=== PATIENT | male | born 1950 | race Hispanic/Latino ===

== ENCOUNTER 2020-05-28 18:18 | Emergency (ER) | payer OTHER ==
[~2020-05-28 18:18] MED LIST: Iopamidol 370 76% 125 ML VIAL FS ONE; Sodium Chloride 0.9% 100 ML BAG ONE
[2020-05-28 18:53] LABS: #Basophils 0.1 thou/uL (0.0-0.2); #Eosinphils 0.3 thou/uL (0.0-0.7); #Lymphocytes 2.8 thou/uL (1.20-3.40); #Monocytes 0.6 thou/uL (0.11-0.59); #Neutrophils 6.3 thou/uL (1.40-6.50); %Basophils 1.2 % (0.0-1.0); %Lymphocytes 27.7 % (21.0-51.0); %Monocytes 5.5 % (0.0-10.0); %Neutrophils 62.6 % (42.0-75.0); Hemoglobin 15.9 g/dL (14.0-18.0); Mean Corpuscular HGB CONC 32.7 g/dL (32.0-36.0); Mean Corpuscular Hemoglobin 28.9 pg (27.0-31.0); Mean Corpuscular Volume 88.4 fL (78.0-98.0); Platelet Count 254 thou/uL (130-400); RBC Distribution Width 12.5 % (11.5-14.5); Red Blood Cell (RBC) Count 5.51 mill/uL (4.70-6.10)
[2020-05-28 18:59] LABS: INR-International Normal Ratio 1.1; Prothrombin Time 14.1 sec (12.0-14.7)
[2020-05-28 19:00] LABS: PTT 36.5 sec (22.9-36.1)
[2020-05-28 19:01] LABS: D-Dimer Test 1.99 *mcg/mL (0.27-0.43)
[2020-05-28] MEDS ORDERED: Aspirin 325 MG TAB ONE (19:02)
[2020-05-28 19:07] LABS: ALT (SGPT) 23 U/L (8-55); AST (SGOT) 18 U/L (5-34); Albumin 4.3 g/dL (3.4-4.8); Alkaline Phosphatase 125 U/L (40-110); Anion Gap 19 mmol/L (10-20); BUN (Urea Nitrogen) 24 mg/dL (8.4-25.7); Bilirubin, Total 0.6 mg/dL (0.2-1.2); CK (CPK) 134 U/L (30-200); Calc. Creatinine Clearance 0 mL/min (70-130); Calcium 9.7 mg/dL (7.8-10.44); Carbon Dioxide 24 mmol/L (23-31); Chloride 102 mmol/L (98-107); Globulin 4.5 g/dL (2.4-3.5); Glucose 315 mg/dL (83-110); Protein, Total 8.8 g/dL (5.8-8.1); Sodium 141 mmol/L (136-145)
[2020-05-28 19:09] LABS: CKMB 3.7 ng/mL (0-6.6)
--- NOTE | 2020-05-28 19:28 | RAD ---
RADIOGRAPH CHEST 1 VIEW: Date: 05/28/20 Time: 7:05 p.m. HISTORY: 70-year-old male with chest pain. COMPARISON: None available. FINDINGS: Sternotomy wires. Cardiac size at upper limits of normal. Diffusely prominent interstitial markings. No consolidation or pneumothorax. No grossly effacement of lateral costophrenic angles. IMPRESSION: 1. Previous open heart surgery. 2. Nonspecific prominent interstitial markings and borderline cardiomegaly. 3. No consolidation. JN [] POS: JIN
[2020-05-28] MEDS ORDERED: Morphine 4 MG/ML VIAL ONE (20:31)
[2020-05-28] MEDS ORDERED: Ondansetron PF 4 MG/2 ML Vial ONE (20:32)
--- NOTE | 2020-05-28 20:43 | CT ---
CT ARTERIOGRAM CHEST WITH IV CONTRAST AND 3D IMAGING CT ARTERIOGRAM ABDOMEN WITH IV CONTRAST AND 3D IMAGING 05/28/20 HISTORY: Dyspnea. Chest and abdomen pain. FINDINGS: There is good contrast opacification of the pulmonary arteries with bovine origin of the great vessel s at the aortic arch. Postoperative changes of the mediastinum. Calcification of the coronary arterie s. The visceral arteries of the abdomen are patent. pelvis was not imaged. Old healed fracture of the left clavicle and ribs. Gallbladder is surgically absent. Extensive motion artifact is noted from breathing. Nonenlarged left mediastinal lymph node is evident. IMPRESSION: No evidence of pulmonary embolus or other acute abnormality. POS: BST
[2020-05-28] MEDS ORDERED: Enoxaparin Sodium 100 MG/ML SYRINGE ONE (21:05)
[2020-05-28] MEDS ORDERED: cefTRIAXone\\ROCEPHIN 2 GM VIAL ONE (21:05)
[2020-05-28] MEDS ORDERED: Sodium Chloride 0.9% 100 ML ONE (21:05)
[2020-05-28 22:33] LABS: Lactic Acid 1.4 mmol/L (0.5-2.2)
[2020-05-28] MEDS ORDERED: Clopidogrel Bisulfate 75 MG TAB ONE (22:59)
[2020-05-28 23:40] LABS: CKMB 59.1 ng/mL (0-6.6)
== END 2020-05-28 22:35 | disposition short-term general hospital (02) ==
LOC: MADERS 18:18
DX: I21.4 Non-ST elevation (NSTEMI) myocardial infarction (principal); I48.91 Unspecified atrial fibrillation; E11.9 Type 2 diabetes mellitus without complications; E78.5 Hyperlipidemia, unspecified; I10 Essential (primary) hypertension; J44.9 Chronic obstructive pulmonary disease, unspecified; Z79.899 Other long term (current) drug therapy
CPT/HCPCS: 36415; 71045; 71275; 80053; 82550; 82553; 83605; 83880; 84484; 85025; 85379; 85610; 85730; 87040; 93005; 94760; 96365; 96372; 96375; J0696; J1650; J2270; J2405; J3490; Q9967

== ENCOUNTER 2020-06-28 05:54 | Emergency (ER) | payer OTHER, MEDICARE ==
[2020-06-28 06:11] LABS: #Basophils 0.1 thou/uL (0.0-0.2); #Eosinphils 0.3 thou/uL (0.0-0.7); #Lymphocytes 3.1 thou/uL (1.20-3.40); #Monocytes 0.6 thou/uL (0.11-0.59); #Neutrophils 5.8 thou/uL (1.40-6.50); %Basophils 1.1 % (0.0-1.0); %Eosinophils 3.2 % (0.0-10.0); %Lymphocytes 31.2 % (21.0-51.0); %Monocytes 6.1 % (0.0-10.0); %Neutrophils 58.3 % (42.0-75.0); Hemoglobin 14.8 g/dL (14.0-18.0); Mean Corpuscular HGB CONC 33.2 g/dL (32.0-36.0); Mean Corpuscular Hemoglobin 29.5 pg (27.0-31.0); Mean Corpuscular Volume 88.8 fL (78.0-98.0); Mean Platelet Volume 10.5 fL (7.4-10.4); Platelet Count 190 thou/uL (130-400); RBC Distribution Width 13.6 % (11.5-14.5); Red Blood Cell (RBC) Count 5.01 mill/uL (4.70-6.10); White Blood Cell (WBC) Count 9.9 thou/uL (4.8-10.8)
[2020-06-28 06:32] LABS: ALT (SGPT) 22 U/L (8-55); AST (SGOT) 21 U/L (5-34); Albumin 4.2 g/dL (3.4-4.8); Alkaline Phosphatase 100 U/L (40-110); Anion Gap 17 mmol/L (10-20); BUN (Urea Nitrogen) 17 mg/dL (8.4-25.7); Bilirubin, Total 0.8 mg/dL (0.2-1.2); CK (CPK) 157 U/L (30-200); Calc. Creatinine Clearance 0 mL/min (70-130); Calcium 9.3 mg/dL (7.8-10.44); Carbon Dioxide 21 mmol/L (23-31); Chloride 106 mmol/L (98-107); Globulin 4.4 g/dL (2.4-3.5); Glucose 249 mg/dL (83-110); Potassium 3.5 mmol/L (3.5-5.1); Protein, Total 8.6 g/dL (5.8-8.1); Sodium 140 mmol/L (136-145)
[2020-06-28 06:58] LABS: Critical Call Chem Troponin I 0
[2020-06-28] MEDS ORDERED: Aspirin Chewable 81 MG TAB ONE (07:07)
[2020-06-28] MEDS ORDERED: Furosemide 40 MG/4 ML VIAL ONE (07:07)
[2020-06-28] MEDS ORDERED: Nitroglycerin 2% Ointment 1 INCH/1 GM Packet ONE (07:07)
[2020-06-28 07:16] LABS: CKMB 5.4 ng/mL (0-6.6)
[2020-06-28] MEDS ORDERED: Azithromycin 500 MG VIAL ONE (08:07)
[2020-06-28] MEDS ORDERED: cefTRIAXone\\ROCEPHIN 1 GM VIAL ONE (08:07)
[2020-06-28] MEDS ORDERED: Enoxaparin Sodium 100 MG/ML SYRINGE ONE (08:07)
[2020-06-28] MEDS ORDERED: Sodium Chloride 0.9% 100 ML ONE (08:07)
[2020-06-28] MEDS ORDERED: Sodium Chloride 0.9% 250 ML 250 ML ONE (08:07)
[2020-06-28 08:36] LABS: SARS-CoV-2 NAA Rapid Test Not Detected (NotDetected)
--- NOTE | 2020-06-28 08:53 | RAD ---
RADIOGRAPH CHEST 1 VIEW: DATE: 06/28/2020 TIME: 6:23 AM HISTORY: 70-year-old male with dyspnea COMPARISON: 05/28/2020 FINDINGS: Sternal wires. No pneumothorax. No consolidation. New mild blunting of right lateral costophrenic ang le. Mild diffuse interstitial densities, slightly worse than before. Cardiac size upper limits of normal. IMPRESSION: Probable pulmonary interstitial edema and small right pleural effusion: Evidence for mild fluid volum e overload or mild congestive heart failure.
== END 2020-06-28 09:41 | disposition short-term general hospital (02) ==
LOC: MADERS 05:54
DX: I11.0 Hypertensive heart disease with heart failure (principal); I50.9 Heart failure, unspecified; Z20.822 Contact with and (suspected) exposure to COVID-19; I25.2 Old myocardial infarction; R79.89 Other specified abnormal findings of blood chemistry; E66.9 Obesity, unspecified; I48.91 Unspecified atrial fibrillation; E11.9 Type 2 diabetes mellitus without complications; E78.5 Hyperlipidemia, unspecified; J44.9 Chronic obstructive pulmonary disease, unspecified; Z79.4 Long term (current) use of insulin; Z79.899 Other long term (current) drug therapy; Z79.01 Long term (current) use of anticoagulants; Z79.82 Long term (current) use of aspirin
CPT/HCPCS: 0240U; 71045; 80053; 82550; 82553; 83605; 83690; 83880; 84484; 85025; 87040; 87086; 93005; 94760; 96365; 96367; 96372; 96375; J0456; J0696; J1650; J1940; J3490; J7050

== ENCOUNTER 2020-07-06 12:53 | Emergency (ER) | payer MEDICARE, OTHER ==
[2020-07-06 13:59] LABS: #Basophils 0.1 thou/uL (0.0-0.2); #Eosinphils 0.1 thou/uL (0.0-0.7); #Lymphocytes 2.1 thou/uL (1.20-3.40); #Monocytes 0.4 thou/uL (0.11-0.59); #Neutrophils 4.8 thou/uL (1.40-6.50); %Basophils 1.4 % (0.0-1.0); %Eosinophils 1.6 % (0.0-10.0); %Lymphocytes 27.5 % (21.0-51.0); %Monocytes 5.8 % (0.0-10.0); %Neutrophils 63.7 % (42.0-75.0); Hemoglobin 14.4 g/dL (14.0-18.0); Mean Corpuscular HGB CONC 32.5 g/dL (32.0-36.0); Mean Corpuscular Hemoglobin 28.9 pg (27.0-31.0); Mean Platelet Volume 10.3 fL (7.4-10.4); Platelet Count 202 thou/uL (130-400); RBC Distribution Width 12.7 % (11.5-14.5); Red Blood Cell (RBC) Count 4.98 mill/uL (4.70-6.10); White Blood Cell (WBC) Count 7.5 thou/uL (4.8-10.8)
--- NOTE | 2020-07-06 14:08 | RAD ---
EXAM: Portable chest PROVIDED CLINICAL HISTORY: Shortness of breath COMPARISON: 06/28/2020 FINDINGS: Cardiac and mediastinal silhouette stable in appearance. Median sternotomy changes are again seen. Pu lmonary vascular congestion, less conspicuous than on prior. No focal consolidation, pleural fluid or pneumothorax evident. IMPRESSION: Cardiomegaly and findings suggesting congestive failure, appearing improved with respect to prior.
[2020-07-06 14:21] LABS: ALT (SGPT) 39 U/L (8-55); AST (SGOT) 32 U/L (5-34); Albumin 4.1 g/dL (3.4-4.8); Alkaline Phosphatase 138 U/L (40-110); Anion Gap 15 mmol/L (10-20); BUN (Urea Nitrogen) 25 mg/dL (8.4-25.7); Bilirubin, Total 0.8 mg/dL (0.2-1.2); Calc. Creatinine Clearance 0 mL/min (70-130); Calcium 9.1 mg/dL (7.8-10.44); Carbon Dioxide 26 mmol/L (23-31); Chloride 103 mmol/L (98-107); Globulin 4.1 g/dL (2.4-3.5); Glucose 272 mg/dL (83-110); Potassium 3.8 mmol/L (3.5-5.1); Protein, Total 8.2 g/dL (5.8-8.1); Sodium 140 mmol/L (136-145)
== END 2020-07-06 16:40 | disposition home or self-care (01) ==
LOC: MADERS 12:53
DX: I11.0 Hypertensive heart disease with heart failure (principal); I50.9 Heart failure, unspecified; I25.2 Old myocardial infarction; I48.91 Unspecified atrial fibrillation; E11.9 Type 2 diabetes mellitus without complications; E78.5 Hyperlipidemia, unspecified; E66.9 Obesity, unspecified; J44.9 Chronic obstructive pulmonary disease, unspecified; Z79.01 Long term (current) use of anticoagulants; Z79.4 Long term (current) use of insulin; Z79.899 Other long term (current) drug therapy
CPT/HCPCS: 36415; 71045; 80053; 82553; 83880; 84484; 85025; 93005

== ENCOUNTER 2020-08-05 18:11 | Emergency (ER) | payer MEDICARE ==
[~2020-08-05 18:11] MED LIST changes: +Iopamidol 370 76% 100 ML VIAL ONE; -Iopamidol 370 76% 125 ML VIAL FS ONE; -Sodium Chloride 0.9% 100 ML BAG ONE
[2020-08-05] MEDS ORDERED: Ondansetron PF 4 MG/2 ML Vial ONE (18:57)
[2020-08-05] MEDS ORDERED: Sodium Chloride 0.9% 1,000 ML ONE (18:57)
[2020-08-05 19:02] LABS: Band 3 % (5-11); Hemoglobin 16.8 g/dL (14.0-18.0); Lymphocytes 5 % (21-51); MDiff Complete? YES; Mean Corpuscular Hemoglobin 28.6 pg (27.0-31.0); Mean Corpuscular Volume 89.4 fL (78.0-98.0); Mean Platelet Volume 8.8 fL (7.4-10.4); Monocytes 5 % (0-10); Neutrophil 87 % (42-75); Platelet Count 229 thou/uL (130-400); Platelet Morphology Comment Appears Adequate; RBC Distribution Width 12.9 % (11.5-14.5); Red Blood Cell (RBC) Count 5.87 mill/uL (4.70-6.10); White Blood Cell (WBC) Count 15.7 thou/uL (4.8-10.8)
[2020-08-05 19:04] LABS: ALT (SGPT) 34 U/L (8-55); AST (SGOT) 33 U/L (5-34); Albumin 4.2 g/dL (3.4-4.8); Alkaline Phosphatase 90 U/L (40-110); Anion Gap 19 mmol/L (10-20); BUN (Urea Nitrogen) 35 mg/dL (8.4-25.7); Bilirubin, Total 0.8 mg/dL (0.2-1.2); Calc. Creatinine Clearance 0 mL/min (70-130); Calcium 9.2 mg/dL (7.8-10.44); Carbon Dioxide 21 mmol/L (23-31); Chloride 105 mmol/L (98-107); Globulin 3.9 g/dL (2.4-3.5); Glucose 97 mg/dL (83-110); Lipase 117 U/L (8-78); Potassium 3.8 mmol/L (3.5-5.1); Protein, Total 8.1 g/dL (5.8-8.1); Sodium 141 mmol/L (136-145)
[2020-08-05] MEDS ORDERED: Sodium Chloride 0.9% 100 ML ONE (19:29)
[2020-08-05] MEDS ORDERED: Metoclopramide HCl 10 MG/2 ML VIAL ONE (19:29)
== END 2020-08-05 21:00 | disposition home or self-care (01) ==
LOC: MADERS 18:11
DX: R11.2 Nausea with vomiting, unspecified (principal); R19.7 Diarrhea, unspecified; I25.2 Old myocardial infarction; I48.91 Unspecified atrial fibrillation; E11.9 Type 2 diabetes mellitus without complications; E78.5 Hyperlipidemia, unspecified; E66.9 Obesity, unspecified; J44.9 Chronic obstructive pulmonary disease, unspecified; Z79.4 Long term (current) use of insulin; Z79.899 Other long term (current) drug therapy; Z79.01 Long term (current) use of anticoagulants
CPT/HCPCS: 74177; 80053; 83605; 83690; 85025; 93005; 96374; 96375; J2405; J2765; J3490; J7050; Q9967